=== PATIENT | female | born 1980 | race Caucasian/White ===

== ENCOUNTER 2020-06-04 17:45 | Emergency (ER) | payer OTHER ==
[2020-06-04 18:20] LABS: BASOPHIL 0.2 % (0-2); EOSINOPHIL 0.2 % (0-5); HCT 37.2 % (37.0-47.0); HGB 12.6 g/dl (12.5-16.0); LYMPHOCYTE 10.2 % (15-48); MCH 33.4 pg (25.0-31.0); MCHC 33.9 g/dL (32.0-36.0); MCV 98.7 fL (78.0-100.0); MONOCYTE 3.6 % (0-12); MPV 9.2 fL (6.0-9.5); NEUTROPHIL 85.5 % (41-80); NRBC 0; PLT 245 K/uL (150-400); RBC 3.77 M/uL (4.20-5.40); RDW 11.9 % (11.5-14.0); WBC 9.8 K/uL (4.0-10.5)
[2020-06-04 18:22] LABS: BILIRUBIN NEGATIVE (NEGATIVE); BLOOD TRACE-INTACT Ery/uL (NEGATIVE); CLARITY CLEAR (CLEAR); COLOR YELLOW (YELLOW); GLUCOSE (U) NORMAL (NORMAL); LEUKOCYTES 1+ Leu/uL (NEGATIVE); NITRITE NEGATIVE (NEGATIVE); PROTEIN NEGATIVE (NEGATIVE); SPECIFIC GRAVITY >=1.030 (1.001-1.030); UROBILINOGEN 0.2 mg/dL (0.2-1.0); pH 6.5 (5.0-9.0)
[2020-06-04 18:32] LABS: ALBUMIN 3.9 g/dL (3.4-5.0); BILIRUBIN - TOTAL 0.4 mg/dL (0.2-1.0); BUN/CREAT RATIO (CALC) 12.6 RATIO; CREATININE 1.35 mg/dL (0.51-0.95); GLOBULIN (CALCULATION) 3.1 g/dL; POTASSIUM 3.8 mmol/L (3.5-5.1)
[2020-06-04 18:34] LABS: BACTERIA 1+
[2020-06-04] MEDS ORDERED: FLOMAX0.4 MG PO (19:04)
[2020-06-04] MEDS ORDERED: ZOFRAN4 M1 PO (19:04)
[2020-06-04] MEDS ORDERED: NORCO 5-325 TA1 EACH PO (19:04)
[2020-06-04] MEDS ORDERED: NAPROXEN500 MG PO (19:04)
== END 2020-06-04 19:32 | disposition home or self-care (01) ==
LOC: FER 17:45
PROVIDERS: Physician Assistant Medical
DX: N13.2 Hydronephrosis with renal and ureteral calculous obstruction (principal); Z90.49 Acquired absence of other specified parts of digestive tract; Z87.442 Personal history of urinary calculi
CPT/HCPCS: 36415; 80053; 81001; 85025; J1885; J2405; Q0169